=== PATIENT | male | born 1965 | race Caucasian/White ===

== ENCOUNTER → 2017-05-01 | Outpatient (CLI) | payer OTHER ==
[2017-05-01] MEDS: BARIUM SULFATE 40% (APPLE) 148 GM PWD. PO ×2 (13:51)
== END | disposition home or self-care (01) ==
LOC: RAD 13:05
DX: R13.10 Dysphagia, unspecified (principal)
CPT/HCPCS: 74230; 92611-GN

== ENCOUNTER → 2017-06-06 | Outpatient (CLI) | payer OTHER ==
[2017-06-07 16:18] LABS: CERULOPLASMIN 23.3 mg/dL (16.0-31.0)
[2017-06-08 22:11] LABS: COPPER LEVEL 95 ug/dL (72-166)
== END | disposition home or self-care (01) ==
LOC: LAB 13:16
DX: R25.1 Tremor, unspecified (principal)
CPT/HCPCS: 36415; 82390; 82525

== ENCOUNTER → 2017-08-01 | Outpatient (CLI) | payer OTHER ==
[2017-08-01 15:05] LABS: ADD MAN DIFF? NO
[2017-08-01 15:08] LABS: BASO % 1 % (0-3); EOS # 0.2 x10^3/uL (0.0-0.7); EOS % 3 % (0-3); HEMATOCRIT 46.8 % (39.0-53.0); HEMOGLOBIN 16.5 g/dL (13.0-17.5); LYMPH # 1.6 x10^3/uL (1.0-4.8); LYMPH % 22 % (24-48); MEAN CORPUSCULAR HEMOGLOBIN 32 pg (25-35); MEAN CORPUSCULAR HGB CONC 35 g/dL (31-37); MEAN CORPUSCULAR VOLUME 92 fL (79-100); MONO # 0.6 x10^3/uL (0.0-1.1); MONO % 8 % (0-9); NEUT % 67 % (31-73); PLATELET COUNT 281 x10^3/uL (140-400); RED BLOOD COUNT 5.09 x10^6/uL (4.30-5.70); RED CELL DISTRIBUTION WIDTH 14.1 % (11.5-14.5); WHITE BLOOD COUNT 7.4 x10^3/uL (4.0-11.0)
[2017-08-01 15:31] LABS: ALBUMIN/GLOBULIN RATIO 1.3 (1.0-1.7); ALK PHOS 81 U/L (46-116); ALT (SGPT) 29 U/L (16-63); ANION GAP 6 (6-14); AST (SGOT) 14 U/L (15-37); BLOOD UREA NITROGEN 8 mg/dL (8-26); BUN/CREATININE RATIO 7 (6-20); CALCIUM 9.1 mg/dL (8.5-10.1); CARBON DIOXIDE 31 mmol/L (21-32); CHLORIDE 105 mmol/L (98-107); CHOLESTEROL 143 mg/dL (0-200); CHOLESTEROL/HDL RATIO 2.8; CREATININE 1.1 mg/dL (0.7-1.3); GFR 71.1; GLUCOSE 95 mg/dL (70-99); HDLC 51 mg/dL (40-60); LDLC 73 mg/dL (0-100); NON-HDL CHOLESTEROL 92 mg/dL (0-129); POTASSIUM 4.3 mmol/L (3.5-5.1); SODIUM 142 mmol/L (136-145); TOTAL BILIRUBIN 0.6 mg/dL (0.2-1.0); TOTAL PROTEIN 7.1 g/dL (6.4-8.2); TRIGLYCERIDES 96 mg/dL (0-150); VLDLC 19 mg/dL (0-40)
[2017-08-02 04:20] LABS: HEMOGLOBIN A1C 4.8 % (4.8-5.6)
== END | disposition home or self-care (01) ==
LOC: LAB 14:50
DX: I10 Essential (primary) hypertension (principal); E78.00 Pure hypercholesterolemia, unspecified; E03.9 Hypothyroidism, unspecified; R41.3 Other amnesia; R25.1 Tremor, unspecified
CPT/HCPCS: 36415; 80053; 80061; 83036; 85025

== ENCOUNTER → 2017-12-12 | Outpatient (CLI) | payer OTHER ==
[2016-01-03 01:36] VITALS: BP 153/91
[~2017-12-12] MED LIST: AMLO5TAB7 PO; BENA40TA3 PO; CALC200T3 PO; HYDR-971 PO; LEVO125T5 PO; OMEP20CA9 PO; TAMS0.4C97 PO
--- NOTE | 2017-12-12 17:03 | KCIC ---
Examination: 3 views of the right ankle and right foot HISTORY: History of pain in the right ankle and foot for 2 months. COMPARISON: None available. Findings: The ankle mortise appears intact. Well-formed bone density identified distal to lateral malleolus likely unfused ossicle. The alignment of the tarsal bones grossly appears unremarkable. The alignment of the tarsometatarsal joints, metatarsophalangeal joints, interphalangeal grossly appears unremarkable. Mild joint space loss identified at the first MTP joint likely degeneration. There is questionable soft tissue swelling about the first MTP joint. IMPRESSION: 1. Mild degenerative changes first MTP joint. 2. No acute osseous findings. 2. Mild soft tissue swelling identified about the first MTP joint, nonspecific. Gout is a possibility based on location however no obvious bony erosions identified. Correlate clinically and with lab values. Electronically signed by: Mahin Garner MD (12/12/2017 4:59 PM) [id number]
== END | disposition home or self-care (01) ==
LOC: KCIC 11:40
PROVIDERS: ATTEND Nurse Practitioner
DX: M19.071 Primary osteoarthritis, right ankle and foot (principal); M25.474 Effusion, right foot; Z86.73 Personal history of transient ischemic attack (TIA), and cerebral infarction without residual deficits
CPT/HCPCS: 73610; 73630

== ENCOUNTER → 2017-12-18 | Outpatient (CLI) | payer OTHER ==
[2016-01-03 01:36] VITALS: BP 153/91
== END | disposition home or self-care (01) ==
LOC: LAB 12:24
PROVIDERS: ATTEND Nurse Practitioner
DX: M79.671 Pain in right foot (principal); I10 Essential (primary) hypertension; E78.00 Pure hypercholesterolemia, unspecified; K21.9 Gastro-esophageal reflux disease without esophagitis; E03.9 Hypothyroidism, unspecified; Z90.49 Acquired absence of other specified parts of digestive tract; Z86.73 Personal history of transient ischemic attack (TIA), and cerebral infarction without residual deficits
CPT/HCPCS: 36415; 84550

== ENCOUNTER → 2018-03-05 | Outpatient (CLI) | payer OTHER ==
[2016-01-03 01:36] VITALS: BP 153/91
[~2018-03-05] MED LIST changes: +HYDR-3164 PO; -HYDR-971 PO
[2018-03-05 16:45] LABS: BASO # 0.1 x10^3/uL (0.0-0.2); BASO % 1 % (0-3); EOS # 0.4 x10^3/uL (0.0-0.7); EOS % 5 % (0-3); HEMOGLOBIN 14.9 g/dL (13.0-17.5); LYMPH # 1.7 x10^3/uL (1.0-4.8); LYMPH % 21 % (24-48); MEAN CORPUSCULAR HEMOGLOBIN 32 pg (25-35); MEAN CORPUSCULAR HGB CONC 35 g/dL (31-37); MEAN CORPUSCULAR VOLUME 93 fL (79-100); MONO # 0.7 x10^3/uL (0.0-1.1); MONO % 9 % (0-9); NEUT # 5.2 x10^3uL (1.8-7.7); NEUT % 64 % (31-73); PLATELET COUNT 270 x10^3/uL (140-400); RED BLOOD COUNT 4.63 x10^6/uL (4.30-5.70); WHITE BLOOD COUNT 8.2 x10^3/uL (4.0-11.0)
[2018-03-05 17:13] LABS: ALBUMIN 3.6 g/dL (3.4-5.0); ALBUMIN/GLOBULIN RATIO 1.2 (1.0-1.7); CALCIUM 8.9 mg/dL (8.5-10.1); CREATININE 1.4 mg/dL (0.7-1.3); GFR 53.6; POTASSIUM 4.2 mmol/L (3.5-5.1); TOTAL BILIRUBIN 0.5 mg/dL (0.2-1.0); TOTAL PROTEIN 6.5 g/dL (6.4-8.2); URIC ACID 5.3 mg/dL (3.5-7.2)
[2018-03-06 01:18] LABS: HEMOGLOBIN A1C 5.1 % (4.8-5.6)
== END | disposition home or self-care (01) ==
LOC: LAB 15:57
PROVIDERS: ATTEND Internal Medicine
DX: I10 Essential (primary) hypertension (principal); M79.671 Pain in right foot; E03.9 Hypothyroidism, unspecified
CPT/HCPCS: 36415; 80053; 82607; 83036; 84443; 84550; 85025; 85651

== ENCOUNTER → 2018-04-10 | Outpatient (CLI) | payer OTHER ==
[2016-01-03 01:36] VITALS: BP 153/91
[~2018-04-10] MED LIST changes: +GADOBUTROL 10 MMOL/10 ML VIAL IV ONE
--- NOTE | 2018-04-10 12:57 | KCIC ---
MRI Brain with and without contrast History: Previous stroke, dizziness, increased memory loss, migraine Technique: Multiplanar, multi sequential pre and postcontrast MR imaging was performed of the brain. Comparison: August 07, 2016 outside facility exam Findings: There is mild motion degradation. There is no evidence of recent infarct or cytotoxic edema. The ventricles, sulci, and cisterns are within normal limits in size and configuration. There is no significant midline shift, intraaxial mass effect, or focal abnormal extra-axial fluid collection. There are stable small foci of signal abnormality of the right thalamus likely due to old lacunar infarcts, associated subtle FLAIR hyperintense signal. There are several old lacunar infarcts of the bilateral cerebellum as seen previously. There is no nodular parenchymal or leptomeningeal enhancement. There is preservation of the major intracranial flow-voids at the skull base. The cerebellar tonsils are normal in location. There is no significant abnormality of the pineal gland or pituitary gland. There is negligible patchy ethmoid air cell mucosal thickening greater on the left. The mastoid air cells are aerated. There is preserved marrow signal of the clivus. Impression: 1. There are old lacunar infarcts of the right thalamus and bilateral cerebellum as seen previously. No new significant intracranial abnormality is identified. Electronically signed by: Maximino Horner MD (04/10/2018 12:53 PM) [facility]-[id number]
== END | disposition home or self-care (01) ==
LOC: KCIC MRI 10:01
PROVIDERS: ATTEND Internal Medicine
DX: G43.809 Other migraine, not intractable, without status migrainosus (principal); I63.89 Other cerebral infarction; I10 Essential (primary) hypertension; Z86.73 Personal history of transient ischemic attack (TIA), and cerebral infarction without residual deficits
CPT/HCPCS: 70553; A9585

== ENCOUNTER → 2018-05-07 | Outpatient (CLI) | payer OTHER ==
[2016-01-03 01:36] VITALS: BP 153/91
[~2018-05-07] MED LIST changes: +AMLO5TAB10 PO; -AMLO5TAB7 PO; -GADOBUTROL 10 MMOL/10 ML VIAL IV ONE
--- NOTE | 2018-05-07 09:43 | CARD ---
MR#: [id number] Date of Study: 05/07/2018 Ordering Physician: MAITE OLIVA, Referring Physician: MAITE OLIVA Tech: Catherine Navas EMANUEL APPROVED REPORT EXAM: Two-dimensional and M-mode echocardiogram with Doppler and color Doppler. Other Information Quality : GoodHR: 82bpm Rhythm : NSR INDICATION Hypertension/HCVD 2D DIMENSIONS RVDd2.9 (2.9-3.5cm)Left Atrium(2D)3.2 (1.6-4.0cm) IVSd1.2 (0.7-1.1cm)Aortic Root(2D)3.0 (2.0-3.7cm) LVDd5.2 (3.9-5.9cm)LVOT Diameter2.1 (1.8-2.4cm) PWd0.9 (0.7-1.1cm)LVDs3.6 (2.5-4.0cm) FS (%) 30.5 %SV74.1 ml LVEF(%)57.6 (>50%) M-Mode DIMENSIONS Left Atrium(MM)3.51 (2.5-4.0cm)Aortic Root3.32 (2.2-3.7cm) Aortic Valve AoV Peak Fred.102.3cm/sAoV VTI17.0cm AO Peak GR.4.2mmHgLVOT Peak Fred.77.1cm/s AO Mean GR.2mmHgAVA (VMAX)2.63cm2 RATNA (VTI)2.60cm2 Mitral Valve MV E Hxtvbnuk12.8cm/sMV DECEL YNHH804wm MV A Qxkmyjur34.1cm/sE/A Ratio0.9 MV A Zihvbfyx262yo Pulmonary Valve PV Peak Pxsuiije095.0cm/s Pulmonary Vein S1 Rotwcfmb55.0cm/sD2 Extkvgsl55.2cm/s LEFT VENTRICLE The left ventricle is normal size. Proximal septal thickening is noted. The left ventricular systolic function is normal. The Ejection Fraction is 55-60%. There is normal LV segmental wall motion. Trans mitral Doppler flow pattern is Grade I-abnormal relaxation pattern. RIGHT VENTRICLE The right ventricle is normal size. There is normal right ventricular wall thickness. The right ventr icular systolic function is normal. ATRIA The left atrium size is normal. The right atrium size is normal. The interatrial septum is intact wit h no evidence for an atrial septal defect or patent foramen ovale as noted on 2-D or Doppler imaging. AORTIC VALVE The aortic valve is normal in structure and function. The aortic valve is trileaflet. Doppler and Col or Flow revealed no significant aortic regurgitation. There is no significant aortic valvular stenosi s. MITRAL VALVE The mitral valve is normal in structure and function. There is no evidence of mitral valve prolapse. There is no mitral valve stenosis. Doppler and Color-flow revealed trace mitral regurgitation. TRICUSPID VALVE The tricuspid valve is normal in structure and function. Doppler and Color Flow revealed no tricuspid valve regurgitation noted. There is no tricuspid valve prolapse or vegetation. There is no tricuspid valve stenosis. PULMONIC VALVE The pulmonary valve is normal in structure and function. Doppler and Color Flow revealed no pulmonic valvular regurgitation. There is no pulmonic valvular stenosis. GREAT VESSELS The aortic root is normal in size. The ascending aorta is normal in size. The IVC is normal in size a nd collapses >50% with inspiration. PERICARDIAL EFFUSION There is no evidence of significant pericardial effusion. Critical Notification Critical Value: No <Conclusion> The left ventricular systolic function is normal. The Ejection Fraction is 55-60%. There is normal LV segmental wall motion. Trace mitral regurgitation. There is no evidence of significant pericardial effusion. Signed by : Maite Oliva, Electronically Approved : 05/07/2018 09:42:13
--- NOTE | 2018-05-07 10:51 | RAD ---
MR#: [id number] Date of Study: 05/07/2018 Ordering Physician: MAITE RAMOS, Referring Physician: MAITE RAMOS, Tech: Earnest Leahy MBA, RDMS, RVT, RDCS, RTR APPROVED REPORT Patient Location: OUT-PATIENT Indications Uncontrolled HTN Renal Artery Doppler Right Renal Artery Left Renal Arter y Proximal 173.0/63.0 cm/secProximal 179.0/69.0 cm/sec Mid 116.0/35.0 cm/secMid 163.0/52.0 cm/sec Distal 73.0/27.0 cm/secDistal 121.0/47.0 cm/sec Renal/Aorta Ratio 1.46Renal/Aorta Ratio 1.50 Prox. Resistive Index 0.64Prox. Resistive Index 0.62 Mid Resistive Index 0.69Mid Resistive Index 0.68 Distal Resistive Index 0.64Distal Resistive Index 0.61 Rt. Segmental A. 50.0/15.0 cm/secLt. Segmental A. 51.0/19.0 cm/sec Renal Measurements RightLeft Kidney Vbfpdx02.3 cm cmKidney Sgiuul43.6 cm cm Right Additional FindingsLeft Additional Findings Aortic Duplex A/PTransverseLongitudinal Proximal Aorta 2.2cm Mid Aorta 1.8cm Distal Aorta 1.6cm Aortic Doppler VelocityWaveform Proximal Aorta 119.0 cm/sec Findings Grayscale images of the bilateral kidneys do not reveal any obvious abnormalities. Normal aortic velocities are noted at 119 cm/s. Normal proximal, mid and distal renal artery velocities are noted. Normal renal to aortic ratios. No obvious evidence of renal artery stenosis detected. Critical Notification Critical Value: No <Conclusion> Negative for renal artery stenosis bilaterally. Signed by : Omar Espitia, Electronically Approved : 05/07/2018 10:50:51
== END | disposition home or self-care (01) ==
LOC: ECHO 08:45
PROVIDERS: ATTEND Internal Medicine Cardiovascular Disease
DX: I10 Essential (primary) hypertension (principal); E03.9 Hypothyroidism, unspecified; R00.8 Other abnormalities of heart beat
CPT/HCPCS: 36415; 84443; 93306; 93975

== ENCOUNTER → 2018-10-02 | Outpatient (CLI) | payer OTHER ==
[2016-01-03 01:36] VITALS: BP 153/91
[~2018-10-02] MED LIST changes: +OMEP20CA10 PO; -OMEP20CA9 PO
[2018-10-02 12:41] LABS: BASO # 0.1 x10^3/uL (0.0-0.2); BASO % 1 % (0-3); EOS # 0.5 x10^3/uL (0.0-0.7); EOS % 7 % (0-3); HEMATOCRIT 46.8 % (39.0-53.0); LYMPH # 1.3 x10^3/uL (1.0-4.8); LYMPH % 19 % (24-48); MEAN CORPUSCULAR HEMOGLOBIN 31 pg (25-35); MEAN CORPUSCULAR HGB CONC 34 g/dL (31-37); MEAN CORPUSCULAR VOLUME 92 fL (79-100); MONO # 0.7 x10^3/uL (0.0-1.1); MONO % 10 % (0-9); NEUT # 4.2 x10^3/uL (1.8-7.7); NEUT % 62 % (31-73); PLATELET COUNT 259 x10^3/uL (140-400); RED CELL DISTRIBUTION WIDTH 13.6 % (11.5-14.5); WHITE BLOOD COUNT 6.7 x10^3/uL (4.0-11.0)
[2018-10-02 12:50] LABS: AMPHETAMINE/METHAMPHETAMINE NEG (NEG); BARBITURATES NEG (NEG); BENZODIAZEPINES NEG (NEG); CANNABINOIDS POS (NEG); COCAINE NEG (NEG); METHADONE NEG (NEG); OPIATES POS (NEG); PHENCYCLIDINE NEG (NEG)
[2018-10-02 13:18] LABS: ALBUMIN/GLOBULIN RATIO 1.2 (1.0-1.7); CALCIUM 9.8 mg/dL (8.5-10.1); CREATININE 1.3 mg/dL (0.7-1.3); GFR 58.4; POTASSIUM 4.1 mmol/L (3.5-5.1); TOTAL BILIRUBIN 0.7 mg/dL (0.2-1.0); TOTAL PROTEIN 7.3 g/dL (6.4-8.2)
[2018-10-03 12:13] LABS: CERULOPLASMIN 23.3 mg/dL (16.0-31.0)
[2018-10-04 17:09] LABS: ANA INTERP Negative (.)
[2018-10-05 04:09] LABS: COPPER LEVEL 90 ug/dL (72-166)
== END | disposition home or self-care (01) ==
LOC: LAB 12:06
PROVIDERS: ATTEND Psychiatry & Neurology Neurology
DX: R41.3 Other amnesia (principal)
CPT/HCPCS: 36415; 80053; 80307; 82390; 82525; 82607; 84443; 85025; 85651; 86038

== ENCOUNTER → 2018-10-18 | Outpatient (CLI) | payer OTHER ==
[2016-01-03 01:36] VITALS: BP 153/91
[~2018-10-18] MED LIST changes: +ASPI81TA50 PO; +ATOR10TA60 PO; +BENA10TA6 PO; +BUPIVACAINE MPF 0.5% 30 ML VIAL. ONE; +BUPR300T4 PO; +CALC500T54 PO; +FLUT9.9S NS; +GABA-585 PO; +LAMO25TA9 PO; +LEVO137T3 PO; +MELA3TAB2 PO; +MULT1TAB52 PO; +OMEP40CA5 PO; +OXYC-411 PO; +PROP80CA3 PO; +VITAMIN C D; +methylPREDNISolone ACETATE 40 MG/ML VIAL. ONE
--- NOTE | 2018-10-19 00:09 | PAIN ---
DATE OF SERVICE: 10/18/2018 INITIAL CONSULTATION FOR PAIN CLINIC CHIEF COMPLAINT: Headache and right-sided headache pain. HISTORY OF PRESENT ILLNESS: This is a 52-year-old male who presents with history of pain since of 10/2015. The patient had multiple lacunar strokes and has left with some imbalance as well as a tremor in the right arm. The patient reports significant pain in the right side of the head, base of the skull radiating superiorly into the occipital region and the parietal region on the right side only. The patient reports, when it is very bad, the whole head hurts. It is worse that ____ the right side, is a very sharp, stabbing pain, described as constant, aching, throbbing, shooting, changes during the day, it varies. It awakens him from sleep at night with a sharp ice pick-type pain. The patient reports some numbness in the shoulders as well on the right side, but mostly the pain in the right neck and head, the patient reports it awakens him from sleep at times. It does not affect his bowel or bladder control, but can affect his ability to walk. He is using a cane, but not all the time, does not have it with him today. The patient has had no other treatments besides medication management. He is taking oxycodone twice daily, clonidine, lamotrigine, all of which do somewhat decrease the pain. The oxycodone works the best for decreasing the pain. The patient rates his disability rating from 0-10, 10 being the worst, is from 4-10 in all categories, family and home responsibility, recreation, social activity, occupation, sexual behavior, self-care and life support activities. The patient reports that, at any time, any day, any hour, it can go from a 4 to a 10 without any warning or any precipitating events to cause this. PAST MEDICAL HISTORY: Significant for hypertension, sleep apnea, pneumonia, previous Hodgkin's lymphoma in 1996, status post chemotherapy and radiation, dizziness, headaches, seizures, strokes, gastroesophageal reflux, Fishman esophagus, cerebral atrophy, previous strokes, memory loss, tremors, and anxiety. PREVIOUS SURGERY: Include bilateral knee surgeries, right hand reconstruction, left wrist reconstruction, lymph node biopsies, bone marrow biopsy, Groshong catheter placement, lumbar laminectomy in 2005, and laparoscopic cholecystectomy in 2001. CURRENT MEDICATIONS: Include gabapentin, levothyroxine, daily baby aspirin, omeprazole, propranolol, bupropion, atorvastatin, lamotrigine, benazepril, oxycodone, multivitamins, atorvastatin, melatonin, fluticasone, and calcium. ALLERGIES: THE PATIENT IS ALLERGIC TO PENICILLIN, BACTRIM, AND SULFA. FAMILY HISTORY: Significant for heart disease, cancer, and diabetes. SOCIAL HISTORY: The patient drinks about 2 alcoholic drinks a week on average, does not smoke, does not use any illegal, illicit or recreational drugs. He is , lives with his spouse and lives locally in [place]. REVIEW OF SYSTEMS: The patient's review of systems is positive for those items mentioned in history of present illness. All systems reviewed and otherwise negative. It is complete, full and well-documented on the patient's chart. PHYSICAL EXAMINATION: VITAL SIGNS: The patient's blood pressure is 155/107, pulse 78, respirations 16, temperature is 98.3 degrees Fahrenheit. Height is 6 feet 2 inches, weight is 230 pounds. GENERAL: The patient is awake, alert, oriented, appropriate, very pleasant demeanor. The patient is accompanied by his spouse. HEENT: Shows normocephalic and atraumatic. The patient wears eyes glasses. Extraocular movements are intact and symmetrical. Pupils are equal, round, reactive to light and accommodation. Oral cavity shows no rashes, no scars, and no lesions. Mucosa is pink. Dentition is intact. NECK: Shows anterior throat supple without palpable lymphadenopathy noted. Swallow reflex is symmetrical. CHEST: Shows normal on inspection. Breath sounds clear to auscultation bilaterally. HEART: Shows S1, S2 clear. No murmurs auscultated. ABDOMEN: Obese, but soft, nontender, nondistended. No palpable organomegaly is noted. BACK: Shows spine grossly in the midline, normal-appearing cervical lordotic curvature, thoracic kyphotic curvature, and lumbar lordotic curvature. The patient's posterior scalp shows no asymmetry, no palpation or atrophy, hypertrophy with the musculature in the occipital region or the parietal region or the temporal region and it elicits no pain with direct palpation in these regions as well. EXTREMITIES: The patient's upper extremities show deep tendon reflexes 2+ in the biceps and triceps tendons. The patient does have a resting tremor in the right hand and forearm, but not the left. This disappears with strength and clenching of the fist. Peripheral pulses are 2+ radial bilaterally. No peripheral edema is noted. IMPRESSION: 1. This is a 52-year-old male with a long history of headaches, pain, right-sided in character, daily headaches. 2. Previous strokes with some partial muscular instability and balance loss. 3. Hypertension. 4. History of Hodgkin's lymphoma. PLAN: Options were discussed with the patient and the patient's spouse, including conservative medical management, physical therapy, and interventional techniques. He would like to pursue interventional techniques. We discussed a right-sided greater and lesser occipital nerve block using description as well as anatomical models to describe the procedure. The patient would like to proceed with this today. The risks were discussed including but not limited to bleeding, infection, possibility of intravascular injection sequelae, spread of local anesthetic and numbness, side effects of steroid medication, and poor results regarding pain control. The patient understands and wished to proceed. The patient will return to clinic in approximately 2 weeks for followup. He was counseled on return appointment, activity level and side effects to be aware of. DIAGNOSIS: Right-sided headaches with right occipital neuralgia. PROCEDURE: Right occipital nerve block using a sterile prep and drape, 25-gauge needle. TOTAL MEDICATIONS INJECTED: A 5 mL of 0.5% bupivacaine and 40 mg Depo-Medrol after negative aspiration. CONDITION AT DISCHARGE: Stable. The patient tolerated the procedure well, had no complications. THIERNO BLANC MD DR: BASHIR/carrie JOB#: [id number] / [id number]
== END ==
LOC: PNCL 07:57
PROVIDERS: ATTEND Anesthesiology
DX: R51 Headache (principal); I10 Essential (primary) hypertension; K21.9 Gastro-esophageal reflux disease without esophagitis; K22.70 Barrett's esophagus without dysplasia; F41.9 Anxiety disorder, unspecified; Z87.01 Personal history of pneumonia (recurrent); Z86.73 Personal history of transient ischemic attack (TIA), and cerebral infarction without residual deficits; Z90.49 Acquired absence of other specified parts of digestive tract; Z98.890 Other specified postprocedural states; Z88.1 Allergy status to other antibiotic agents; Z88.0 Allergy status to penicillin; Z88.8 Allergy status to other drugs, medicaments and biological substances; Z72.89 Other problems related to lifestyle
CPT/HCPCS: 64405; J1030; J3490

== ENCOUNTER → 2018-10-29 | Outpatient (CLI) | payer OTHER ==
[2016-01-03 01:36] VITALS: BP 153/91
[~2018-10-29] MED LIST changes: -BUPIVACAINE MPF 0.5% 30 ML VIAL. ONE; -methylPREDNISolone ACETATE 40 MG/ML VIAL. ONE
--- NOTE | 2018-10-29 14:54 | RAD ---
KNEE RIGHT 3V 10/29/2018 12:00 AM INDICATION: Right knee pain COMPARISON: None available. TECHNIQUE: 3 views the right knee are provided. FINDINGS: There is no acute fracture or dislocation. There is no knee joint effusion. Bone mineralization is within normal limits. Joint spaces are maintained. Regional soft tissues are within normal limits. There is no soft tissue gas or osseous erosion. IMPRESSION: No acute fracture or dislocation. Electronically signed by: Sinai Hay MD (10/29/2018 2:51 PM) [id number]
== END | disposition home or self-care (01) ==
LOC: RAD 08:43
PROVIDERS: ATTEND Orthopaedic Surgery Sports Medicine
DX: M25.561 Pain in right knee (principal)
CPT/HCPCS: 73562

== ENCOUNTER → 2018-12-10 | Outpatient (CLI) | payer OTHER ==
[2016-01-03 01:36] VITALS: BP 153/91
[~2018-12-10] MED LIST changes: +BUPIVACAINE MPF 0.5% 30 ML VIAL. ONE; -MELA3TAB2 PO; +MELA3TAB56 PO; +methylPREDNISolone ACETATE 80 MG/ML VIAL. ONE
--- NOTE | 2018-12-10 12:34 | PAIN ---
DATE OF SERVICE: 12/10/2018 PROGRESS NOTE FOR PAIN CLINIC DIAGNOSIS: Headache with a right occipital neuralgia. HISTORY OF PRESENT ILLNESS: The patient is a 52-year-old male who returns for followup status post right greater and lesser occipital nerve blocks. The patient reports only minimal decrease in pain, but a near 50% for the first week then the pain returned in the right side of the head radiating into the posterior occipital region and parietal region, but can be severe at times. The patient reports over the past week has been a 9 on a scale of 10 at its worst, 7 on average, 5 at its least and is a 7 today. The patient reports it is aching, sharp, tight, shooting, tingling, burning, stabbing, constant, severe, can be unbearable. The patient reports no new motor or sensory deficits or other complaints. He reports he is having difficulty with memory loss as well as some tremor which remains in his right upper extremity. PHYSICAL EXAMINATION: VITAL SIGNS: The patient's blood pressure 162/114, pulse 64, respirations are 18, temperature is 98.0 degrees Fahrenheit, height is 6 feet 2 inches, weight is 226 pounds. GENERAL: The patient is awake, alert, oriented, appropriate, very pleasant demeanor. HEENT: Head shows normocephalic, atraumatic. Extraocular movements are intact and symmetrical. Oral cavity: Mucous membranes moist and pink. Dentition is intact. NECK: Shows anterior throat supple without palpable lymphadenopathy noted. Swallow reflex symmetrical. CHEST: Shows normal on inspection. Breath sounds clear bilaterally. HEART: Shows S1, S2 clear. No murmurs auscultated. ABDOMEN: Soft, nontender, nondistended. BACK: Shows spine grossly in the midline. Normal appearing cervical lordotic curvature and thoracic kyphotic curvature. Cervical paraspinous muscle shows symmetrical on inspection, with palpation shows some very minor tenderness in the inferior aspect of the cervical paraspinous muscles. Full rotational motion is maintained both laterally greater than 45 degrees closer to 90 degrees as well as full extension, full forward flexion without significant pain reported. EXTREMITIES: The patient's upper extremities show deep tendon reflexes 2+ in the biceps and triceps tendons. Motor exam is strong with stevedoring supervisor strength rated at 5/5 and equal as is bicep and tricep flexion. Peripheral pulses are 2+ radial distribution. The patient does have a resting tremor in the right forearm, but not the left. Posterior scalp shows no significant abnormalities. No masses or specific trigger points over the scalp musculature. Options were discussed with the patient. The patient's old chart was reviewed as well as his current medication regimen updated. Current review of systems updated today as well. We will proceed with a right greater and lesser occipital nerve block today with risks discussed including, but not limited to bleeding, infection, possibility of intravascular injection sequelae, spread of local anesthetic and numbness, side effects of steroid medication and poor results regarding pain control. The patient understands and wished to proceed. The patient will return to clinic in approximately 2 weeks for followup. He was counseled on return appointment, activity level, and side effects to be aware of. DIAGNOSIS: Right occipital neuralgia. PROCEDURE: Right greater and lesser occipital nerve block under sterile prep and drape using local anesthetic. MEDICATION INJECTED: A total of 5 mL of 0.5% bupivacaine and 80 mg of Depo-Medrol after negative aspiration. CONDITION AT DISCHARGE: Stable. The patient tolerated procedure well, had no complications. THIERNO BLANC MD DR: BASHIR/carrie JOB#: [id number] / [id number]
== END ==
LOC: PNCL 10:46
PROVIDERS: ATTEND Anesthesiology
DX: M54.81 Occipital neuralgia (principal)
CPT/HCPCS: 64405; J1040; J3490

== ENCOUNTER → 2018-12-24 | Outpatient (CLI) | payer OTHER ==
[2016-01-03 01:36] VITALS: BP 153/91
[~2018-12-24] MED LIST changes: +OMEP40CA45 PO; -OMEP40CA5 PO; +UBID30CA9 PO; +methylPREDNISolone ACETATE 40 MG/ML VIAL. ONE; -methylPREDNISolone ACETATE 80 MG/ML VIAL. ONE
--- NOTE | 2018-12-24 14:58 | PAIN ---
DATE OF SERVICE: 12/24/2018 PROGRESS NOTE FOR PAIN CLINIC DIAGNOSES: Headache with right occipital neuralgia. HISTORY OF PRESENT ILLNESS: The patient is a 53-year-old male who returns for followup status post right greater and lesser occipital nerve blocks x 2, most recently on 12/10. The patient reports he did well for a few days. The sharpness of the pain was decreased and the headache was dull as well for 2-3 days. The patient reports after that time, the pain began to return to its baseline within a day or two. The patient reports now the pain is significant in the right occipital region radiating superiorly into the parietal region with some pain around the right ear as well at times. The patient reports it is aching, sharp, dull, tight, shooting, stabbing, burning, tingling, can be constant, can be severe, unbearable, ____ in the morning when he wakes up, other times it is like it throughout the day. The patient reports it is an 8 on a scale of 10 at its worst over the past week, 5 on average, 4 at its least and is an 8 today. The patient reports no new motor or sensory deficits, no new changes. PHYSICAL EXAMINATION: VITAL SIGNS: The patient's blood pressure is 163/105, pulse 69, respirations 18, temperature 97.27 degrees Fahrenheit, height 6 feet 2 inches, weight is 223 pounds. GENERAL: The patient is awake, alert, oriented, appropriate, very pleasant demeanor. The patient is accompanied by his spouse. HEENT: Shows normocephalic, atraumatic. Extraocular movements are intact and symmetrical. Oral cavity: Mucous membranes moist and pink. NECK: Shows anterior throat supple without palpable lymphadenopathy noted. Pupils equal, round, and reactive to light and accommodation. The patient's posterior occipital region shows normal on inspection, with palpation shows some mild tenderness, but only diffusely in the occipital distribution of the right occipital region. No tenderness specifically over the right mastoid or the occipital protuberance. No abnormalities or masses palpated throughout the occipital and parietal region as well as the temporal region. Right and left sides of the shows anterior throat supple without palpable lymphadenopathy noted. Neck shows full rotational motion of the cervical spine without difficulty. CHEST: The patient's chest shows normal on inspection. Breath sounds are clear bilaterally. HEART: Shows S1, S2 clear. ABDOMEN: Soft, nontender, nondistended. EXTREMITIES: Upper extremities show deep tendon reflexes 2+ in the biceps, triceps tendons. Motor exam is 5/5 with department clerk strength, bicep and tricep flexion. The patient does have a slight resting tremor in the right forearm and hand. Peripheral pulses are 2+ bilaterally in the radial distribution. Options were discussed with the patient. The patient's old chart was reviewed as his current medication regimen updated. Current review of systems updated today as well. We will proceed with repeat right greater and lesser occipital nerve block with risks discussed including, but not limited to bleeding, infection, possibility of intravascular injection sequelae, spread of local anesthetic and numbness, side effects of steroid medication and poor results regarding pain control. The patient understands and wished to proceed. The patient will return to clinic in approximately 2 weeks for followup. He was counseled on return appointment, activity level and side effects to be aware of. DIAGNOSES: Right occipital neuralgia. PROCEDURE: Right greater and lesser occipital nerve block using sterile prep and drape under local anesthetic. MEDICATION INJECTED: A total of 5 mL of 0.5% bupivacaine and total of 40 mg Depo-Medrol after negative aspiration. CONDITION AT DISCHARGE: The patient tolerated procedure well, had no complications. THIERNO BLANC MD DR: BASHIR/carrie JOB#: [id number] / [id number]
== END ==
LOC: PNCL 09:33
PROVIDERS: ATTEND Anesthesiology
DX: M54.81 Occipital neuralgia (principal)
CPT/HCPCS: 64405; J1030; J3490

== ENCOUNTER → 2019-02-18 | Outpatient (CLI) | payer OTHER ==
[2016-01-03 01:36] VITALS: BP 153/91
[~2019-02-18] MED LIST changes: +OMEP-229 PO; -OMEP20CA10 PO
--- NOTE | 2019-02-18 14:06 | PAIN ---
DATE OF SERVICE: 02/18/2019 PROGRESS NOTE FOR PAIN CLINIC DIAGNOSES: Headaches with right occipital neuralgia. HISTORY OF PRESENT ILLNESS: The patient is a 53-year-old male who returns for followup status post right greater and lesser occipital nerve blocks. The patient reports it is improved, but only for a few days after the injections 2-3 days, generally with decrease in headache. The patient reports of significant increase in ringing in his ears over the past month or so and right-sided headache and in the posterior occiput and parietal region. The patient reports it is aching, sharp, dull, shooting, tingling, burning, stabbing, radiating, becoming constant, severe, unbearable at times with significant ringing in the right ear. The patient reports his pain at 8 on a scale of 10 at its worst, 5 on average, 4 at its least and is a 5 today. The patient reports no new motor or sensory deficits and is having difficulty sleeping. As when he sleeps, he feels the headache intensifies once he wakes up. The patient reports no new changes otherwise. PHYSICAL EXAMINATION: VITAL SIGNS: The patient's blood pressure 140/101, pulse 72, respirations 18, temperature 98.0 degrees Fahrenheit and height is 6 feet 2 inches, weight is 224 pounds. GENERAL: The patient is awake, alert, oriented, appropriate, very pleasant demeanor. HEENT: Shows normocephalic, atraumatic. Extraocular movements are intact and symmetrical. Oral cavity: Mucous membranes moist and pink. Dentition is intact. NECK: Shows anterior throat supple without palpable lymphadenopathy noted. Swallow reflex symmetrical. CHEST: Shows normal on inspection. Breath sounds clear bilaterally. HEART: Shows S1, S2 clear. No murmurs auscultated. ABDOMEN: Soft, nontender, nondistended. No palpable organomegaly is noted. No rebound or guarding demonstrated. BACK: Shows spine grossly in the midline. Normal appearing thoracic kyphosis and cervical lordotic curvature. Cervical paraspinous muscle shows symmetrical on inspection, on palpation shows some moderate tenderness diffusely throughout the upper, middle and lower distribution of the cervical paraspinous musculature. No obvious masses felt over the occipital region. The patient does have a mildly palpable occipital pulse on the right side, but very faint on the left side. Neck shows full rotational motion of the cervical spine without difficulty or pain reported. EXTREMITIES: Upper extremities show deep tendon reflexes 2+ in the biceps, triceps tendon. Motor exam is strong with human services program specialist strength, rated at 5/5 as is bicep and tricep flexion. Peripheral pulses are 1+ posterior tibia. No peripheral edema is noted bilaterally. Options were discussed with the patient. The patient's old chart was reviewed as his current medication regimen updated. Current review of systems updated today as well. We will proceed with repeat right sided greater and lesser occipital nerve block today with risks discussed including, but not limited to bleeding, infection, possibility of intravascular injection sequelae, spread of local anesthetic and numbness, side effects of steroid medication and poor results regarding pain control. The patient understands and wished to proceed. The patient will return to clinic in approximately 2 weeks for followup. He was counseled as to return appointment, activity level and side effects to be aware of. DIAGNOSES: Headache with right occipital neuralgia. PROCEDURE: Right greater and lesser occipital nerve block using sterile prep and drape. MEDICATION INJECTED: A total of 5 mL of 0.5% bupivacaine and 40 mg Depo-Medrol. CONDITION AT DISCHARGE: Stable. The patient tolerated the procedure well, had no complications. THIERNO BLANC MD DR: BASHIR/carrie JOB#: [id number] / [id number]
== END ==
LOC: PNCL 09:44
PROVIDERS: ATTEND Anesthesiology
DX: M54.81 Occipital neuralgia (principal)
CPT/HCPCS: 64405; J1030; J3490

== ENCOUNTER → 2019-02-28 | Outpatient (CLI) | payer OTHER ==
[2016-01-03 01:36] VITALS: BP 153/91
[~2019-02-28] MED LIST changes: -BUPIVACAINE MPF 0.5% 30 ML VIAL. ONE; -methylPREDNISolone ACETATE 40 MG/ML VIAL. ONE
--- NOTE | 2019-03-03 19:25 | EEG ---
DATE OF SERVICE: 02/28/2019 EEG NUMBER: [id number]. OBJECTIVE: This is a 53-year-old male patient with symptoms of possible seizure. EEG was requested to evaluate seizure activity. METHODS: Twenty electrodes were applied according to the international 10-20 electrode placement system. EKG monitoring, hyperventilation, intermittent photic stimulation, monopolar and bipolar montages are routinely utilized. The record was obtained on a digital system with video monitoring. FINDINGS: 1. Background: The patient was recorded in the awake, drowsy, and sleep states. The overall background amplitude is 5-10 microvolts. A posterior dominant rhythm of 8-10 Hz is observed. 2. Abnormalities: No specific epileptiform discharge or electrographic seizure is seen. No focal or diffuse slowing. 3. Activation: Hyperventilation was not performed for the reason unknown. Intermittent photic stimulation was performed with photic driving. IMPRESSION: This EEG is a borderline study for the awake, drowsy, and sleep states. No focal, lateralizing, specific epileptiform discharge or electrographic seizure is seen. TIM DE GUZMAN MD DR: DERICK/carrie JOB#: [id number] / [id number] EVE
== END | disposition home or self-care (01) ==
LOC: RT 12:45
PROVIDERS: ATTEND Psychiatry & Neurology Neurology
DX: R56.9 Unspecified convulsions (principal); Z87.891 Personal history of nicotine dependence
CPT/HCPCS: 95816

== ENCOUNTER → 2019-03-25 | Outpatient (CLI) | payer OTHER ==
[2016-01-03 01:36] VITALS: BP 153/91
[~2019-03-25] MED LIST changes: +BENA10TA55 PO; -BENA10TA6 PO; -BUPR300T4 PO; +BUPR300T92 PO; -OMEP-229 PO; +OMEP20CA16 PO
--- NOTE | 2019-04-01 18:38 | EEG ---
DATE OF SERVICE: EEG DATE: 03/25/2019 to 03/26/2019. EEG NUMBER: [id number]. OBJECTIVE: This is a 53-year-old white male patient with history of seizure or seizure-like episodes. EEG was requested to evaluate seizure activity. This is a long-term video EEG study with total video monitoring and EEG recording time of 24 hours from 03/25/2019 to 03/26/2019. METHODS: Twenty electrodes were applied according to the international 10-20 electrode placement system. EKG monitoring, hyperventilation, intermittent photic stimulation, monopolar and bipolar montages are routinely utilized. The record was obtained on a digital system with video monitoring. MEDICATIONS: No anti-seizure medication. FINDINGS: 1. Background: The patient was recorded in the awake, drowsy, and sleep states. The overall background amplitude is 5-15 microvolts. A posterior dominant rhythm of 8-10 Hz is observed. 2. Abnormalities: No specific epileptiform discharge or electrographic seizure is seen. No focal or diffuse slowing. Significant artifact noted. 3. Activation: Hyperventilation was performed with good efforts and normal response. Intermittent photic stimulation was performed with photic driving. No specific epileptiform discharge or electrographic seizure induced by hyperventilation or intermittent photic stimulation. IMPRESSION: This is a long-term video EEG study with total video monitoring and EEG recording time of 24 hours from 03/25/2019 to 03/26/2019. This long-term video EEG study is within the normal limits of the study for the awake, drowsy, and sleep states. No focal, lateralizing, specific epileptiform discharge or electrographic seizure is seen. The patient had several brief sleep episodes during the day; however, his actual sleep time during the night was about 3-4 hours from 1:00 am to before 4:00 am and remained awake afterwards. TIM DE GUZMAN MD DR: DERICK/carrie JOB#: [id number] / [id number] EVE
== END | disposition home or self-care (01) ==
LOC: SLPLAB 05:55
PROVIDERS: ATTEND Psychiatry & Neurology Neurology
DX: G40.89 Other seizures (principal)
CPT/HCPCS: 95951

== ENCOUNTER → 2019-08-20 | Outpatient (CLI) | payer OTHER ==
[2016-01-03 01:36] VITALS: BP 153/91
[~2019-08-20] MED LIST changes: +MELA3TAB4 PO; -MELA3TAB56 PO
[2019-08-20 11:38] LABS: BASO # 0.1 x10^3/uL (0.0-0.2); BASO % 1 % (0-3); EOS # 0.5 x10^3/uL (0.0-0.7); EOS % 8 % (0-3); HEMATOCRIT 44.6 % (39.0-53.0); HEMOGLOBIN 15.3 g/dL (13.0-17.5); LYMPH # 1.8 x10^3/uL (1.0-4.8); LYMPH % 26 % (24-48); MEAN CORPUSCULAR HEMOGLOBIN 32 pg (25-35); MEAN CORPUSCULAR HGB CONC 34 g/dL (31-37); MEAN CORPUSCULAR VOLUME 92 fL (79-100); MONO # 0.8 x10^3/uL (0.0-1.1); MONO % 11 % (0-9); NEUT # 3.7 x10^3/uL (1.8-7.7); NEUT % 54 % (31-73); PLATELET COUNT 233 x10^3/uL (140-400); RED BLOOD COUNT 4.85 x10^6/uL (4.30-5.70); RED CELL DISTRIBUTION WIDTH 13.5 % (11.5-14.5); WHITE BLOOD COUNT 6.9 x10^3/uL (4.0-11.0)
[2019-08-20 12:00] LABS: ALBUMIN/GLOBULIN RATIO 1.4 (1.0-1.7); CALCIUM 8.9 mg/dL (8.5-10.1); CREATININE 1.8 mg/dL (0.7-1.3); POTASSIUM 4.4 mmol/L (3.5-5.1); TOTAL BILIRUBIN 0.5 mg/dL (0.2-1.0); TOTAL PROTEIN 6.9 g/dL (6.4-8.2)
[2019-08-20 12:01] LABS: CHOLESTEROL/HDL RATIO 3.9
--- NOTE | 2019-08-20 16:37 | RAD ---
PA and lateral chest. HISTORY: Dyspnea on exertion, history of lymphoma PA and lateral views were taken of the chest. Lungs are clear. There is minimal linear scarring at the left costophrenic angle. There is no effusion. There are no confluent infiltrates. IMPRESSION: 1. No acute chest disease. Electronically signed by: Jamison Crooks MD (08/20/2019 4:34 PM) [id number]
[2019-08-21 00:07] LABS: HEMOGLOBIN A1C 5.1 % (4.8-5.6)
== END ==
LOC: RAD 11:15
PROVIDERS: ATTEND Internal Medicine
DX: Z12.5 Encounter for screening for malignant neoplasm of prostate (principal); R06.09 Other forms of dyspnea; Z85.72 Personal history of non-Hodgkin lymphomas
CPT/HCPCS: 36415; 71046; 80053; 80061; 83036; 84443; 85025; G0103

== ENCOUNTER → 2020-02-17 | Outpatient (CLI) | payer OTHER ==
[2016-01-03 01:36] VITALS: BP 153/91
[~2020-02-17] MED LIST changes: +AMLO-186 PO; -AMLO5TAB10 PO; +GADOTERATE 7.5 MMOL/15ML VIAL. IVP ONE; +MULT-445 PO; -MULT1TAB52 PO; -OXYC-411 PO; +OXYC1TAB20 PO
--- NOTE | 2020-02-17 15:31 | KCIC ---
MRI of the Brain/IACs without and with contrast 02/17/2020 Clinical History: Balance difficulties, headaches, bilateral hearing loss. CVA. Technique: Unenhanced T1-weighted sagittal and axial and FLAIR, T2-weighted, gradient echo and diffusion-weighted axial images of the brain were obtained. Thin section T1-weighted axial and T2-weighted axial and coronal images through the IACs were obtained. After the intravenous administration of 18 cc of Clariscan, enhanced T1-weighted axial and coronal images of the brain were obtained. Additionally enhanced thin section T1-weighted axial and coronal images through the IACs were obtained. Findings: Comparison study is dated 08/07/2016. The ventricles and sulci are within normal limits in size and configuration. Patchy and several small scattered areas of increased signal intensity are seen within the periventricular and subcortical white matter of both cerebral hemispheres on the FLAIR and T2-weighted images consistent with areas of minimal small vessel ischemic disease. Old areas of infarction are seen involving both cerebellar hemispheres. These measure 3 to 5 mm in size. An old area of lacunar infarction is seen involving the right thalamus. This measures 6 mm in size. No acute parenchymal abnormality is seen. No extra-axial fluid collection is seen. There is no MRI evidence of acute ischemia/infarction. No abnormal area of parenchymal contrast enhancement is seen. MRI images through the IACs are within normal limits. No abnormal soft tissue mass or area of abnormal contrast enhancement is seen. Mild mucosal thickening in seen scattered throughout the paranasal sinuses. Normal flow voids are seen within the major vascular structures surrounding the brain parenchyma. Impression: 1. No acute parenchymal abnormality is seen. 2. Negative MRI of the IACs. Electronically signed by: Gagan Wong MD (02/17/2020 3:28 PM) [id number]
== END ==
LOC: KCIC MRI 10:00
PROVIDERS: ATTEND Otolaryngology Plastic Surgery within the Head & Neck
DX: H90.3 Sensorineural hearing loss, bilateral (principal); Z86.73 Personal history of transient ischemic attack (TIA), and cerebral infarction without residual deficits
CPT/HCPCS: 70553; 82565; A9575

== ENCOUNTER → 2020-09-28 | Outpatient (CLI) | payer OTHER ==
[2016-01-03 01:36] VITALS: BP 153/91
[~2020-09-28] MED LIST changes: -GADOTERATE 7.5 MMOL/15ML VIAL. IVP ONE; -OMEP40CA45 PO; +OMEP40CA7 PO
[2020-09-28 12:48] LABS: BASO # 0.1 x10^3/uL (0.0-0.2); BASO % 1 % (0-3); EOS # 0.5 x10^3/uL (0.0-0.7); EOS % 6 % (0-3); HEMATOCRIT 46.7 % (39.0-53.0); HEMOGLOBIN 15.9 g/dL (13.0-17.5); LYMPH # 1.5 x10^3/uL (1.0-4.8); LYMPH % 17 % (24-48); MEAN CORPUSCULAR HEMOGLOBIN 32 pg (25-35); MEAN CORPUSCULAR HGB CONC 34 g/dL (31-37); MEAN CORPUSCULAR VOLUME 93 fL (79-100); MONO # 0.8 x10^3/uL (0.0-1.1); MONO % 10 % (0-9); NEUT # 5.8 x10^3/uL (1.8-7.7); NEUT % 67 % (31-73); PLATELET COUNT 267 x10^3/uL (140-400); RED BLOOD COUNT 5.03 x10^6/uL (4.30-5.70); RED CELL DISTRIBUTION WIDTH 13.9 % (11.5-14.5); WHITE BLOOD COUNT 8.7 x10^3/uL (4.0-11.0)
--- NOTE | 2020-09-28 13:08 | RAD ---
EXAM: Right foot, 3 views HISTORY: Pain. COMPARISON: None. FINDINGS: 3 views of the right foot are obtained. There is no acute fracture, dislocation or subluxat ion. There is first metatarsal phalangeal joint space narrowing with subchondral sclerosis and spurri ng. IMPRESSION: 1. No acute osseous finding. 2. Mild first metatarsal phalangeal joint osteoarthritis. Electronically signed by: Kenia Tellez MD (09/28/2020 1:06 PM) [id number]
[2020-09-28 13:23] LABS: ALBUMIN 3.8 g/dL (3.4-5.0); ALBUMIN/GLOBULIN RATIO 1.2 (1.0-1.7); CREATININE 1.5 mg/dL (0.7-1.3); GFR 49.1; TOTAL BILIRUBIN 0.7 mg/dL (0.2-1.0); URIC ACID 4.3 mg/dL (3.5-7.2)
[2020-09-28 13:29] LABS: CHOLESTEROL/HDL RATIO 3.6
[2020-09-29 19:23] LABS: ANA INTERP Negative (.)
== END ==
LOC: LAB 12:14
PROVIDERS: ATTEND Internal Medicine
DX: M19.071 Primary osteoarthritis, right ankle and foot (principal); M89.8X7 Other specified disorders of bone, ankle and foot; M77.51 Other enthesopathy of right foot and ankle; M25.871 Other specified joint disorders, right ankle and foot; I10 Essential (primary) hypertension; E03.9 Hypothyroidism, unspecified
CPT/HCPCS: 36415; 73630; 80053; 80061; 82306; 82607; 84443; 84550; 85025; 85651; 86038; G0103

== ENCOUNTER 2020-12-24 06:36 | Day surgery (SDC) | payer OTHER ==
[~2020-12-24] VITALS: Ht 188 cm; Wt 100.0 kg
[2020-12-24] MEDS ORDERED: IV RINGERS,LACTATED 1000ML 1,000 ML IV SCH (07:00)
[2020-12-24] MEDS ORDERED: MELO15TA23 PO (07:03)
[2020-12-24] MEDS ORDERED: LACT1CAP6 PO (07:03)
[2020-12-24] MEDS ORDERED: ZINC50TA39 PO (07:03)
[2020-12-24 07:05] VITALS: BP 156/95
[2020-12-24] MEDS ORDERED: PROPOFOL 10 MG/ML (20ML) VIAL. IV ONE (08:03)
[2020-12-24] MEDS ORDERED: LIDOCAINE 2% PF 5 ML VIAL. ONE (08:03)
[2020-12-24 08:23] VITALS: BP 144/97
--- NOTE | 2020-12-24 08:31 | CONS ---
DATE OF CONSULTATION: 12/24/2020 REFERRING PHYSICIAN: Rhea Charlton. REASON FOR CONSULTATION: Fishman's and colorectal screening. HISTORY OF PRESENT ILLNESS: This 55-year-old male with past medical history significant for Fishman's. He is seen for interval endoscopy, also has heartburn and dysphagia after pills in the substernal location. Reflux has been controlled with omeprazole 40 mg daily. In addition, colorectal screening is requested. He does have alternating diarrhea and constipation. No bleeding was present. He is otherwise without additional complaints. PAST MEDICAL HISTORY: Hyperlipidemia, hypertension, hypothyroidism, Fishman's, history of Hodgkin's lymphoma, lymphocytic lesion. ALLERGIES: PENICILLIN AND SULFA. MEDICATIONS: Include aspirin, atorvastatin, benazepril, bupropion, Flonase, lactobacillus, levothyroxine, melatonin, meloxicam, multivitamin, omeprazole, oxycodone, propranolol, and zinc. FAMILY HISTORY: Significant for diabetes with his grandmother, [place] with his mother and grandmother, hypertension in both parents and cerebrovascular disease in father. SOCIAL HISTORY: Current social drinker and former smoker. PAST SURGICAL HISTORY: Status post cholecystectomy and back surgery. REVIEW OF SYSTEMS: Per records. PHYSICAL EXAMINATION: GENERAL: Reveals a well-nourished, well-developed male, who is alert, cooperative, in no acute distress. VITAL SIGNS: Temperature 98.4, pulse 80, respiratory rate 18. LUNGS: Clear. CARDIOVASCULAR: Reveals an S1, S2, without S3, S4 or appreciable murmur. ABDOMEN: Reveals a soft abdomen, normal bowel sounds, without appreciable hepatosplenomegaly. Right upper quadrant, cholecystectomy incision. IMPRESSION AND RECOMMENDATIONS: 1. Fishman's esophagus with dysphagia. Interval endoscopy, possible biopsy and/or dilatation was recommended. Risks and benefits have been previously discussed. 2. Colorectal screening with alternating diarrhea and constipation. Interval colonoscopy is recommended. Risks and benefits were previously discussed. The patient is willing to proceed. AILEEN/ALIYA DR: Dilan TID: [id number]
--- NOTE | 2020-12-27 18:06 | PATHOLOGY ---
[facility] Accession Number: [id number] . 01 Material submitted: . esophagus - BIOPSY OF ESOPHAGUS DISTAL. Modifiers: distal . 01 Clinical history: . [facility]/DIARRHEA/CONSTIPATION/HX BATRES'S EGD/COLON R/O BATRES'S/ ESOPHAGITIS . 02 Diagnosis: Esophageal biopsies, distal esophagus: - Reflux esophagitis. (JPM:pit; 12/27/2020) QTP 12/27/2020 1346 Local . 02 Comment: Sections of the distal esophageal biopsy reveal segments of hyperplastic squamous esophageal mucosa showing focal chronic inflammation. The findings are consistent with reflux esophagitis. There is no evidence of Batres's change, dysplasia, or malignancy. (JPM:pit; 12/27/2020) . 02 Electronically signed: . Ji Wren MD, Pathologist NPI- [id number] . 01 Gross description: . Received in formalin labeled "[place], distal esophagus BX" are multiple monzon-brown soft tissue fragments measuring in aggregate 1.8 x 0.7 x 0.2 cm. The specimen is submitted entirely in A1. ([facility]; 12/25/2020) . GZA/GZA 12/25/2020 1711 Local . 02 Pathologist provided ICD-10: K21.00 . 02 CPT . 296541 Specimen Comment: A courtesy copy of this report has been sent to [phone], [phone] Specimen Comment: [id number] Specimen Comment: Report sent to / DR LEZAMA Specimen Comment: A duplicate report has been generated due to demographic updates. Performed at: 01 [facility] [address], [place], [place] [id number] MD Chris Bhatt MD Phone: [phone] Performed at: [address] [id number] MD Ji Wren MD Phone: [phone]
== END 2020-12-24 08:46 | disposition home or self-care (01) ==
LOC: ENDOS 06:36
PROVIDERS: ATTEND Internal Medicine Gastroenterology
DX: Z12.11 Encounter for screening for malignant neoplasm of colon (principal); K22.70 Barrett's esophagus without dysplasia; K31.89 Other diseases of stomach and duodenum; K63.89 Other specified diseases of intestine; K21.00 Gastro-esophageal reflux disease with esophagitis, without bleeding; K64.0 First degree hemorrhoids; I10 Essential (primary) hypertension; E78.5 Hyperlipidemia, unspecified; E03.9 Hypothyroidism, unspecified; Z86.73 Personal history of transient ischemic attack (TIA), and cerebral infarction without residual deficits; Z79.899 Other long term (current) drug therapy; Z98.890 Other specified postprocedural states; Z90.49 Acquired absence of other specified parts of digestive tract; Z82.49 Family history of ischemic heart disease and other diseases of the circulatory system; Z83.3 Family history of diabetes mellitus; Z88.0 Allergy status to penicillin; Z88.2 Allergy status to sulfonamides
CPT/HCPCS: 43239; 43450; 45378; 88305; J2704

== ENCOUNTER 2021-01-03 09:57 | Emergency (ER) | payer OTHER ==
[~2021-01-03] VITALS: Ht 188 cm; Wt 99.5 kg
[~2021-01-03 09:57] MED LIST changes: +LACT1CAP6 PO; +MELO15TA23 PO; +ZINC50TA39 PO
--- NOTE | 2021-01-03 10:37 | PHYS DOC ---
Past Medical History Past Medical History: Cancer, CVA, GERD, High Cholesterol, Hypertension, Hypothyroid, Pneumonia, TIA Additional Past Medical Histor: HODGKINS LYPMPHOMA-1996, BARRETTS, LYMPHOCYSTIC LESION Past Surgical History: Cervical Fusion, Cholecystectomy, Lumbar Laminectomy, Other Additional Past Surgical Histo: R. WRIST AND FINGERS, BILATERAL KNEE Smoking Status: Former Smoker Alcohol Use: Occasionally Drug Use: Marijuana General Adult EDM: Chief Complaint: SHORTNESS OF BREATH HPI: HPI: Patient is a 55-year-old male presents to the emergency department complaining of coughing up clear sputum with bright red blood this morning and last night with some shortness of breath. Patient states he has a history of Fishman's esophagus, lymphatic lesions, Hodgkin's lymphoma, worries he might have a lung infection. Patient reports he felt similar to this when he had pneumonia years ago. Patient states he was a cigarette smoker for many years and quit in 2010. Denies drinking alcohol or illicit drug use. Patient reports receiving a flu vaccine and Covid vaccine series this year. Patient reports a history of a CVA with residual dizziness and constant headaches. Patient denies chest pains, recent fever or chills, abdominal pain, states he does get nauseated when his chronic head pain becomes worse throughout the day. Patient denies other physical complaints or physical concerns. Review of Systems: Review of Systems: 14 body systems of review of systems have been reviewed. See HPI for pertinent positives and negative responses, otherwise all other systems are negative, nonpertinent or noncontributory. Constitutional: Negative except as outlined in HPI above. Skin: Negative except as outlined in HPI above. Eyes: Negative except as outlined in HPI above. HENT: Negative except as outlined in HPI above. Respiratory: Negative except as outlined in HPI above. Cardiovascular: Negative except as outlined in HPI above. GI: Negative except as outlined in HPI above. : Negative except as outlined in HPI above. Musculoskeletal: Negative except as outlined in HPI above. Integument: Negative except as outlined in HPI above. Neurologic: Negative except as outlined in HPI above. Endocrine: Negative except as outlined in HPI above. Lymphatic: Negative except as outlined in HPI above. Psychiatric: Negative except as outlined in HPI above. Heart Score: C/O Chest Pain: No Risk Factors: Risk Factors: DM, Current or recent (<one month) smoker, HTN, HLP, family history of CAD, obesity. Risk Scores: Score 0 - 3: 2.5% MACE over next 6 weeks - Discharge Home Score 4 - 6: 20.3% MACE over next 6 weeks - Admit for Clinical Observation Score 7 - 10: 72.7% MACE over next 6 weeks - Early Invasive Strategies Allergies: Allergies: Allergies Coded Allergies Type Severity Reaction Last Updated Verified Penicillins Allergy Intermediate Hives 12/24/20 Yes Sulfa (Sulfonamide Antibiotics) Allergy Intermediate Swelling 12/24/20 Yes Physical Exam: PE: Constitutional: Well developed, well nourished, no acute distress, non-toxic appearance. 55-year-old male rocking back and forth in bed during physical examination.. HENT: Normocephalic, atraumatic. Oropharynx moist, pink, no deep tissue infectious process appreciated. Eyes: Conjunctiva normal, no discharge. Neck: Normal range of motion, no stridor. Cardiovascular: No cyanosis appreciated, distal cap refill less than 2 seconds. Regular rate and rhythm, heart sounds S1-S2 auscultation. Lungs & Thorax: Patient is in no respiratory distress, no audible adventitious lung sounds appreciated. Lung sounds clear to auscultation all lung beard, no discoloration of the anterior thorax. No subcu air appreciated. Equal rise and fall of chest. Abdomen: Nontender, no abnormalities noted. Skin: Warm, dry, no erythema, no rash. Back: No tenderness, no deformities. Extremities: No tenderness, no cyanosis, no clubbing, ROM intact, no edema. Neurologic: Alert and oriented X 3, normal motor function, normal sensory function, no focal deficits noted. Psychologic: Affect normal, judgement normal, mood normal. Current Patient Data: Labs: Laboratory Tests Test 01/03/21 10:45 01/03/21 13:15 01/03/21 16:50 White Blood Count 14.4 x10^3/uL Red Blood Count 5.26 x10^6/uL Hemoglobin 16.4 g/dL Hematocrit 47.6 % Mean Corpuscular Volume 91 fL Mean Corpuscular Hemoglobin 31 pg Mean Corpuscular Hemoglobin Concent 34 g/dL Red Cell Distribution Width 13.5 % Platelet Count 276 x10^3/uL Neutrophils (%) (Auto) 82 % Lymphocytes (%) (Auto) 8 % Monocytes (%) (Auto) 7 % Eosinophils (%) (Auto) 3 % Basophils (%) (Auto) 0 % Neutrophils # (Auto) 11.7 x10^3/uL Lymphocytes # (Auto) 1.2 x10^3/uL Monocytes # (Auto) 1.0 x10^3/uL Eosinophils # (Auto) 0.5 x10^3/uL Basophils # (Auto) 0.1 x10^3/uL Erythrocyte Sedimentation Rate 4 Prothrombin Time 11.6 SEC Prothromb Time International Ratio 0.9 Activated Partial Thromboplast Time 28 SEC Sodium Level 140 mmol/L Potassium Level 3.8 mmol/L Chloride Level 101 mmol/L Carbon Dioxide Level 30 mmol/L Anion Gap 9 Blood Urea Nitrogen 14 mg/dL Creatinine 1.4 mg/dL Estimated GFR (Cockcroft-Gault) 53.0 BUN/Creatinine Ratio 10 Glucose Level 88 mg/dL Calcium Level 9.2 mg/dL Total Bilirubin 0.6 mg/dL Aspartate Amino Transf (AST/SGOT) 18 U/L Alanine Aminotransferase (ALT/SGPT) 37 U/L Alkaline Phosphatase 102 U/L Creatine Kinase 58 U/L Creatine Kinase MB (Mass) 1.2 ng/mL Creatine Kinase MB Relative Index % Troponin I Quantitative < 0.017 ng/mL C-Reactive Protein, Quantitative 8.5 mg/L IS-Ccj-A-Type Natriuretic Peptide 1260 pg/mL Total Protein 7.5 g/dL Albumin 3.8 g/dL Albumin/Globulin Ratio 1.0 Urine Collection Type Unknown Urine Color Yellow Urine Clarity Clear Urine pH 5.5 Urine Specific [place] 1.020 Urine Protein Negative mg/dL Urine Glucose (UA) Negative mg/dL Urine Ketones (Stick) Negative mg/dL Urine Blood Negative Urine Nitrite Negative Urine Bilirubin Negative Urine Urobilinogen Dipstick 0.2 mg/dL Urine Leukocyte Esterase Negative Urine RBC 0 /HPF Urine WBC 0 /HPF Urine Amorphous Sediment Present /HPF Urine Bacteria 0 /HPF Urine Hyaline Casts Moderate /HPF Urine Mucus Marked /LPF SARS-CoV-2 Antigen (Rapid) Negative Current Medications Medications (Trade) Dose Ordered Sig/Marianne Route PRN Reason Start Time Stop Time Status Last Admin Dose Admin Sodium Chloride 1,000 ml @ 1,000 mls/hr 1X ONCE IV 01/03/21 10:45 01/03/21 11:44 DC 01/03/21 10:53 Ondansetron HCl (Zofran) 4 mg 1X ONCE IVP 01/03/21 10:45 01/03/21 10:46 DC 01/03/21 10:54 Morphine Sulfate (Morphine Sulfate) 4 mg 1X ONCE IVP 01/03/21 10:45 01/03/21 10:47 DC 01/03/21 10:53 Iohexol (Omnipaque 350 Mg/ml) 90 ml 1X ONCE IV 01/03/21 15:15 01/03/21 15:16 DC 01/03/21 15:18 Info (CONTRAST GIVEN -- Rx MONITORING) 1 each PRN DAILY PRN MC SEE COMMENTS 01/03/21 15:15 01/05/21 15:14 Ondansetron HCl (Zofran) 4 mg 1X ONCE IVP 01/03/21 16:45 01/03/21 16:46 DC 01/03/21 17:04 Morphine Sulfate (Morphine Sulfate) 5 mg 1X ONCE IV 01/03/21 16:45 01/03/21 16:46 DC 01/03/21 17:04 Metoclopramide HCl (Reglan Vial) 10 mg 1X ONCE IVP 01/03/21 17:30 01/03/21 17:31 DC 01/03/21 17:43 Hydromorphone HCl (Dilaudid) 1 mg 1X ONCE IVP 01/03/21 17:30 01/03/21 17:31 DC 01/03/21 17:39 Vital Signs: Vital Signs Date Time Temp Pulse Resp B/P (MAP) Pulse Ox O2 Delivery O2 Flow Rate FiO2 01/03/21 09:59 98.4 83 20 168/98 (121) 99 Room Air 98.4 EKG: EKG: EKG performed at 1029 by ED nursing staff shows a normal sinus rhythm without other ectopy, [place] interval 0.132, QTc interval 0.407, no acute STEMI, no ACS, no acute ischemia appreciated, EKG interpreted by ED attending physician Dr. Ibarra. Radiology/Procedures: Radiology/Procedures: PATIENT: AZAM MCCRARY LACCOUNT: [id number] : 1965 LOCATION: ER AGE: 55 SEX: M EXAM STATUS: REG ER ORD. PHYSICIAN: AZAM CISSE APRN REASON: Short of breath PROCEDURE: CHEST AP ONLY XR CHEST 1V History: Reason: Short of breath / Spl. Instructions: / History: Comparison: August 20, 2019 Findings: No consolidation or pleural effusion. Normal heart size. No pneumothorax. Impression: 1. No acute cardiopulmonary process. Electronically signed by: Narinder Reyes DO (01/03/2021 11:21 AM) [id number] STATUS: REG ER ORD. PHYSICIAN: AZAM CISSE APRN REASON: hemoptysis PROCEDURE: CT ANGIOGRAPHY CHEST CTA CHEST History: Hemoptysis Comparison: None. Technique: CTA of the pulmonary arteries with intravenous contrast. Multiplanar reconstruction including MIPS are provided. Findings: Pulmonary arteries: No pulmonary embolism. Aorta and great vessels: No aneurysm or dissection of the aortic arch or thoraci c aorta. Thyroid: No significant abnormalities. Mediastinum and dev: No mediastinal masses or adenopathy is seen. Esophagus: The visualized esophagus is normal. Heart: The heart is normal in size. There is no pericardial effusion. Mild coronary artery calcification. Airways, Lungs, Pleura: Airways are clear. There is patchy groundglass opacity involving primarily the left upper lobe, possible subtle involvement of the right upper lobe and left lower lobe. No pleural effusion or pneumothorax. Upper abdomen: Partially visualized right upper pole renal cyst. Osseous structures and soft tissues: Within normal limits for age. Impression: 1. No pulmonary embolism, aortic aneurysm or aortic dissection. 2. Patchy groundglass opacity primarily involving the left upper lobe with possible subtle involvement of the right upper lobe and left upper lobe. Findings most concerning for infectious process, recommend follow-up CT in 3 months following appropriate course of treatment. ------ Exposure: One or more of the following individualized dose reduction techniques were utilized for this examination: 1. Automated exposure control 2. Adjustment of the mA and/or kV according to patient size 3. Use of iterative reconstruction technique. Electronically signed by: Benjamin Seth MD (01/03/2021 3:34 PM) [id number] Course & Med Decision Making: Course & Med Decision Making Pertinent Labs and Imaging studies reviewed. (See chart for details) 55-year-old male, vital signs reviewed, presents emergency department concerning coughing up blood. Physical examination unremarkable for acute respiratory distress. Patient does have history of Fishman's esophagus, patient does complain of dizziness with headache and nausea however he does state he has always felt dizzy such as this and has this exact headache every day since his old CVA years ago, patient states he is not concerned about his dizziness nor shortness of breath nor nausea, will order work-up concerning hemoptysis versus esophagitis. Will give Zofran and pain medication pending work-up Patient's labs unremarkable, chest x-ray negative for acute process, reviewed patient case with ED attending physician Dr. Ibarra who recommended CT angio chest to rule out underlying mass versus other respiratory process related to patient's long history of cigarette smoking, patient did report quitting smoking in 2010. Patient is amenable to this. CT angio chest concerning for groundglass opacities, will order COVID-19 testing however patient does report receiving the COVID-19 virus vaccination series with flu vaccination this year. Patient's rapid COVID-19 virus test negative, patient was given additional nausea and pain medications for chronic headache and chronic nausea. Patient states he does feel better and feels comfortable going home. Discussed at length with patient need to follow-up with mobile lab technician related to hemoptysis, this may be a viral process however cannot rule out other lung disease at this time, discussed with patient mobile lab technician may consider bronchoscopy with biopsy pending their examination. Patient states he has close follow-up with primary care physician, states he will see them or call them tomorrow for follow-up related to hemoptysis, patient does now reveal having a history of hemoptysis episodes extending approximately a year. Patient is hemodynamically stable and in no apparent distress at this time, will discharge to home. Antonia Disclaimer: Antonia Disclaimer: This electronic medical record was generated, in whole or in part, using a voice recognition dictation system. Departure Departure Impression: Primary Impression: Hemoptysis Disposition: HOME / SELF CARE / HOMELESS Condition: GOOD Referrals: HORACIO LEZAMA MD (PCP) ALYSSA SOFIA MD Patient Instructions: Hemoptysis Additional Instructions: You were seen today in the emergency department for coughing up blood. An extensive cardiorespiratory work-up was performed in emergency department and is reassuring that your labs were within normal limits, your chest x-ray did not show any signs of pneumonia or other respiratory process. A CT angio chest of your chest was performed, there were no signs of pulmonary emboli however did show some groundglass opacities which can be consistent with viral type illness, a Covid 19 virus test was performed, you do not have the COVID-19 virus. As we discussed at length, please follow-up with your primary care physician for referral to a mobile lab technician. I am giving you a referral to see Dr. Sofia for pulmonary specialty. However you may use any mobile lab technician of your choice. Please call tomorrow for an appointment for follow-up. You may continue to take your home medications as prescribed by your primary care physician. Thank you for visiting our Emergency Department. It was a pleasure taking care of you today in the emergency department and we appreciate you trusting us with your care. If any additional problems come up don't hesitate to return to visit us. Please follow up with your primary care provider so they can plan additional care if needed and know about the problem that you had. If symptoms worsen come back to the Emergency Department. Any concerning symptoms that start such as c hest pain, shortness of air, weakness or numbness on one side of the body, running high fevers or any other concerning symptoms return to the ER. EMERGENCY DEPARTMENT GENERAL DISCHARGE INSTRUCTIONS Thank you for coming to [facility] Emergency Department (ED) today and trusting us with you care. We trust that you had a positive experience in our Emergency Department. If you wish to speak to the department management, you may call the Director at [phone]. YOUR FOLLOW UP INSTRUCTIONS ARE FOLLOWS: 1. Do you have a private Doctor? If you do not have a private doctor, please ask for a resource list of physicians or clinics that may be able to assist you with follow up care. 2. The Emergency Physicain has interpreted your x-rays. The X-Ray specialist will also review them. If there is a change in the findings, you will be notified in 48 hours when at all possible. 3. A lab test or culture has been done, your results will be reviewed and you will be notified if you need a change in treatment. ADDITIONAL INSTRUCTIONS AND INFORMATION: 1. Your care today has been supervised by a physician who is specially trained in emergency care. Many problems require more than one evaluation for a complete diagnosis and treatment. We recommend that you schedule your follow up appointment as recommended to ensure complete treatment of you illness or injury. If you are unable to obtain follow up care and continue to have a problem, or if your condition worsens, we recommend that you return to the ED. 2. We are not able to safely determine your condition over the phone nor are we able to give sound medical advice over the phone. For these safety reasons, if you call for medical advice we will ask you to come to the ED for further evaluation. 3. If you have any questions regarding these discharge instructions please call the ED at [phone]. SAFETY INFORMATION: In the interest of safety, wellness, and injury prevention; we encourage you to wear your sealbelt, if you smoke; quite smoking, and we encourage family to use a protective helmet for bicycling and other sporting events that present an increased risk for head injury. IF YOUR SYMPTOMS WORSEN OR NEW SYMPTOMS DEVELOP, OR YOU HAVE CONCERNS ABOUT YOUR CONDITION; OR IF YOUR CONDITION WORSENS WHILE YOU ARE WAITING FOR YOUR FOLLOW UP APPOINTMENT; EITHER CONTACT YOUR PRIMARY CARE DOCTOR, THE PHYSICIAN WHOSE NAME AND NUMBER YOU WERE GIVEN, OR RETURN TO THE ED IMMEDIATELY. AZAM CISSE APRN Jan 03, 2021 10:37
[2021-01-03] MEDS ORDERED: MORPHINE SULFATE 4 MG/ML INJ. IVP ONE (10:45)
[2021-01-03] MEDS ORDERED: ONDANSETRON PF 4 MG/2 ML VIAL. IVP ONE ×2 (10:45→16:45)
[2021-01-03] MEDS ORDERED: IV NORMAL SALINE 1000ML BAG 1,000 ML IV ONE (10:45)
[2021-01-03 11:09] LABS: BASO # 0.1 x10^3/uL (0.0-0.2); BASO % 0 % (0-3); EOS # 0.5 x10^3/uL (0.0-0.7); EOS % 3 % (0-3); HEMATOCRIT 47.6 % (39.0-53.0); HEMOGLOBIN 16.4 g/dL (13.0-17.5); LYMPH # 1.2 x10^3/uL (1.0-4.8); LYMPH % 8 % (24-48); MEAN CORPUSCULAR HEMOGLOBIN 31 pg (25-35); MEAN CORPUSCULAR HGB CONC 34 g/dL (31-37); MEAN CORPUSCULAR VOLUME 91 fL (79-100); MONO % 7 % (0-9); NEUT # 11.7 x10^3/uL (1.8-7.7); NEUT % 82 % (31-73); PLATELET COUNT 276 x10^3/uL (140-400); RED BLOOD COUNT 5.26 x10^6/uL (4.30-5.70); RED CELL DISTRIBUTION WIDTH 13.5 % (11.5-14.5); WHITE BLOOD COUNT 14.4 x10^3/uL (4.0-11.0)
[2021-01-03 11:20] LABS: CALCIUM 9.2 mg/dL (8.5-10.1); CREATININE 1.4 mg/dL (0.7-1.3); POTASSIUM 3.8 mmol/L (3.5-5.1)
--- NOTE | 2021-01-03 11:24 | RAD ---
XR CHEST 1V History: Reason: Short of breath / Spl. Instructions: / History: Comparison: August 20, 2019 Findings: No consolidation or pleural effusion. Normal heart size. No pneumothorax. Impression: 1. No acute cardiopulmonary process. Electronically signed by: Narinder Reyes DO (01/03/2021 11:21 AM) [id number]
[2021-01-03 11:26] LABS: ALBUMIN 3.8 g/dL (3.4-5.0); TOTAL BILIRUBIN 0.6 mg/dL (0.2-1.0); TOTAL PROTEIN 7.5 g/dL (6.4-8.2)
[2021-01-03 11:32] LABS: PROTHROMBIN TIME PATIENT 11.6 SEC (11.7-14.0)
[2021-01-03 11:34] LABS: CREATINE KINASE 58 U/L (39-308)
[2021-01-03 11:35] LABS: C-REACTIVE PROTEIN 8.5 mg/L (0-3.3)
[2021-01-03 14:12] LABS: BILIRUBIN,URINE NEGATIVE (NEG); CLARITY,URINE CLEAR; COLOR,URINE YELLOW; NITRITE,URINE NEGATIVE (NEG); PH,URINE 5.5 (<5.0-8.0); PROTEIN,URINE NEGATIVE (NEG-TRACE); UROBILINOGEN,URINE 0.2 mg/dL (0.2 mg/dL)
[2021-01-03 14:22] LABS: AMORPHOUS SEDIMENT,UR PRESENT /HPF; BACTERIA,URINE 0 /HPF (0-FEW); HYALINE CASTS, URINE MODERATE /HPF; RBC,URINE 0 /HPF (0-2); WBC,URINE 0 /HPF (0-4)
[2021-01-03] MEDS ORDERED: IOHEXOL 350 MG/ML 100 ML VIAL. IV ONE (15:15)
[2021-01-03] MEDS ORDERED: CONTRAST GIVEN. MC PRN (15:15)
--- NOTE | 2021-01-03 15:37 | RAD ---
CTA CHEST History: Hemoptysis Comparison: None. Technique: CTA of the pulmonary arteries with intravenous contrast. Multiplanar reconstruction includ ing MIPS are provided. Findings: Pulmonary arteries: No pulmonary embolism. Aorta and great vessels: No aneurysm or dissection of the aortic arch or thoracic aorta. Thyroid: No significant abnormalities. Mediastinum and dev: No mediastinal masses or adenopathy is seen. Esophagus: The visualized esophagus is normal. Heart: The heart is normal in size. There is no pericardial effusion. Mild coronary artery calcificat ion. Airways, Lungs, Pleura: Airways are clear. There is patchy groundglass opacity involving primarily th e left upper lobe, possible subtle involvement of the right upper lobe and left lower lobe. No pleura l effusion or pneumothorax. Upper abdomen: Partially visualized right upper pole renal cyst. Osseous structures and soft tissues: Within normal limits for age. Impression: 1. No pulmonary embolism, aortic aneurysm or aortic dissection. 2. Patchy groundglass opacity primarily involving the left upper lobe with possible subtle involveme nt of the right upper lobe and left upper lobe. Findings most concerning for infectious process, elizabeth mmend follow-up CT in 3 months following appropriate course of treatment. ------ Exposure: One or more of the following individualized dose reduction techniques were utilized for thi s examination: 1. Automated exposure control 2. Adjustment of the mA and/or kV according to patient size 3. Use of iterative reconstruction technique. Electronically signed by: Benjamin Seth MD (01/03/2021 3:34 PM) [id number]
[2021-01-03] MEDS ORDERED: MORPHINE SULFATE 10 MG/ML VIAL. IV ONE (16:45)
--- NOTE | 2021-01-03 16:49 | EKG ---
[facility] [address] [place] [address] Test Date: 2021-01-03 Test Time: 10:29:40 Pat Name: AZAM MCCRARY Department: Room: Gender: M Multigrapher: : 1965 Requested By: AZAM CISSE Order Number: [id number] Reading MD: Omar Espitia MD Measurements Intervals [place] Rate: 88 P: 13 [place]: 132 QRS: 45 QRSD: 82 T: 18 QT: 334 QTc: 407 Interpretive Statements SINUS RHYTHM Electronically Signed On 01-04-2021 9:11:15 CDT by Omar Espitia MD
[2021-01-03] MEDS ORDERED: METOCLOPRAMIDE HCL 10 MG/2 ML VIAL. IVP ONE (17:30)
[2021-01-03] MEDS ORDERED: HYDROmorphone 2 MG/ML VIAL IVP ONE (17:30)
[2021-01-03 18:21] VITALS: BP 164/84
--- NOTE | 2021-01-04 17:35 | NUR ---
IP: Attempted to contact pt concerning covid results. No answer, left a voicemail to return the call.
--- NOTE | 2021-01-05 16:21 | NUR ---
IP: Informed pt of negative covid results. Pt verbalized understanding.
== END 2021-01-03 18:52 | disposition home or self-care (01) ==
LOC: ER 09:57
DX: R04.2 Hemoptysis (principal); R06.02 Shortness of breath; K21.9 Gastro-esophageal reflux disease without esophagitis; E78.00 Pure hypercholesterolemia, unspecified; I10 Essential (primary) hypertension; E03.9 Hypothyroidism, unspecified; Z20.822 Contact with and (suspected) exposure to COVID-19; Z86.73 Personal history of transient ischemic attack (TIA), and cerebral infarction without residual deficits; Z88.0 Allergy status to penicillin; Z88.2 Allergy status to sulfonamides
CPT/HCPCS: 36415; 71045; 71275; 80053; 81001; 82553; 83880; 84484; 85025; 85610; 85651; 85730; 86140; 86850; 86900; 86901; 87426; 93005; 96361; 96374; 96375; 96376; 99285; J1170; J2270; J2405; J2765; J7030; Q9967; U0003; U0005